=== PATIENT | male | born 2000 | race Hispanic/Latino ===

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

== ENCOUNTER 2024-07-26 23:01 | Emergency (ER) | payer SELFPAY ==
[~2024-07-26] VITALS: Ht 170.2 cm; Wt 78.5 kg
--- NOTE | 2024-07-26 23:03 | NUR ---
COVID, FLU AND STREP COLLECTED AND SENT FOR ANY FUTURE ORDERS
[2024-07-26 23:28] LABS: RAPID GROUP A STREP negative (NEGATIVE)
[2024-07-26 23:30] LABS: SARS-CoV-2, RNA, NAAT NEGATIVE SARS CoV-2 (NEGATIVE)
[2024-07-26 23:38] LABS: INFLUENZA TYPE A Negative For Type A (NEGATIVE); INFLUENZA TYPE B Negative For Type B (NEGATIVE)
[2024-07-26] MEDS ORDERED: AMOX1TAB16 PO (23:56)
--- NOTE | 2024-07-26 23:57 | ERN ---
ED Note History of Present Illness Stated Complaint: LEFT EAR PAIN Chief Complaint: Earache Time Seen by MD: 23:05 Time Seen by Midlevel: 23:05 Dictation: The patient is a 23-year-old male with no past medical history who presents to the emergency department with complaints of left ear pain onset yesterday. Patient denies any fevers, nasal congestion, sore throat or any other associated symptoms Allergies: Coded Allergies: No Known Allergies (Unverified Allergy, Unknown, 07/26/24) Home Meds Active Scripts Amoxicillin/Potassium Clav (Amox Tr-K Clv 875-125 mg Tab) 875 Mg-125 Mg Tablet, 1 TAB PO BID for 10 Days, #20 TAB 0 Refills Prov:SID MCKEON [employer] 07/26/24 Past Medical History Past Medical History: No Pertinent History Surgical History: None RN Note Reviewed/Agreed w/PFSH: Yes Review of System Dictation Constitutional: Negative for fever,chills, and weight loss Eyes: Negative for injury, pain,redness, and discharge ENT: Positive for left ear pain Cardiovascular: Negative for chest pain, palpitations, and edema Respiratory: Negative for shortness of breath, cough, and wheezing, Abdomen/GI: Negative for abdominal pain, nausea, vomiting, diarrhea, and constipation Back: Negative for injury and pain : Negative for injury, bleeding and discharge MS/Extremity: Negative for injury and deformity Skin: Negative for rash, and discoloration Neuro: Negative for headache, weakness, numbness, tingling, and seizure Psych: Negative for suicide ideation, homicidal ideation, and hallucinations Initial Vital Sign VS Vital Signs Date Time Temp Pulse Resp B/P (MAP) Pulse Ox O2 Delivery O2 Flow Rate FiO2 07/26/24 23:03 98.6 85 16 131/94 100 Room Air 07/27/24 00:10 0 21 Physical Exam Dictation Vital Signs reviewed General Appearance: Alert, oriented x 3, no acute distress, well developed, nourished. Head and Face: non-traumatic. Eyes: PERRL, pink conjunctivas, eyelid no trauma, anterior chamber with arcus se nilis. Ears: Pinnas intact and no signs of trauma or erythema ear canals clear and no discharge left tympanic membrane erythema Nose: No discharge, no bleeding. Oropharynx: Mouth normal, tongue pink. pharynx clear,no erythema, tonsils no exudates, no abscesses noted, mucous membrane moist Neck: Supple, non-tender, no thyromegaly, no masses, no JVD, no bruits Breast:Deferred Chest:No tenderness, no crepitus, no paradoxical movement, no retractions Lungs:Clear, well-ventilated, symmetric, no rales, no wheezing, no rhonchi, no stridor, good breath sounds bilaterally Heart: Regular rate, regular rhythm, no murmur, no gallops Vascular: no peripheral edema, Abdomen: Soft, positive bowel sounds, nondistended, no guarding, nontender, no rebound, no masses no hepatomegaly, no splenomegaly, no Espinoza's sign, no hernias. Rectal: Deferred Genital: Deferred Neurological: Normal speech, motor function intact, sensory function intact Musculoskeletal: Neck nontender, full range of motion, back nontender, full ra nge of motion, Extremities: nontender, full range of motion Skin: Color pink, dry, no turgor, no rash, no lacerations, no abrasions, no contusions. Lymphatic: Deferred Results (Laboratory/Radiology) Laboratory/Radiology Laboratory Tests Test 07/26/24 23:05 Influenza Type A Antigen Negative For Type A Influenza Type B Antigen Negative For Type B SARS-CoV-2, RNA, NAAT NEGATIVE SARS CoV-2 Group A Streptococcus Rapid negative (NEGATIVE) Labs Reviewed?: Yes ED Course ED Course Orders Procedure Category Date Status Time Influenza Type A & B, LAB 07/26/24 Complete Rapid 23:12 Rapid (Group A Strep) LAB 07/26/24 Complete 23:12 Covid Rna Naat LAB 07/26/24 Complete 23:12 Ketorolac 60mg/2ml PHA 07/27/24 Complete (Toradol 60mg/2ml) 00:00 Current Medications Medications (Trade) Dose Ordered Sig/Lynn Route PRN Reason Start Time Stop Time Status Last Admin Dose Admin Ketorolac Tromethamine (toRADol 60MG/ 2ML) 60 mg ONCE ONCE IM 07/27/24 00:00 07/27/24 00:01 DC 07/27/24 00:05 Vital Signs Date Time Temp Pulse Resp B/P (MAP) Pulse Ox O2 Delivery O2 Flow Rate FiO2 07/27/24 00:10 98.6 83 18 129/87 99 Room Air* 0 21 07/26/24 23:03 98.6 85 16 131/94 100 Room Air Medical Decision Making MDM The patient is a 23-year-old male with no past medical history who presents to the emergency department with complaints of left ear pain onset yesterday. P atient denies any fevers, nasal congestion, sore throat or any other associated symptoms Patient has symptoms consistent with a otitis media. Bulging tympanic membrane, erythema and patient will be discharged to follow up with PCP and started on antibiotics. Patient nontoxic appearing Differential diagnosis: Otitis media, otitis externa, cerumen impaction Need for hospitalization: Patient does not meet criteria for hospitalization. There are no social concerns with this patient. DX & DISP Disposition: Discharge Departure Impression: Primary Impression: Otitis media, left Condition: Stable Scripts Amoxicillin/Potassium Clav (Amox Tr-K Clv 875-125 mg Tab) 875 Mg-125 Mg Tablet 1 TAB PO BID for 10 Days, #20 TAB 0 Refills Prov: SID MCKEON 07/26/24 Additional Instructions: FOLLOW-UP WITH PRIMARY CARE PROVIDER IN 1 TO 2 DAYS. TAKE MEDICATIONS DIRECTED HERE IN THE EMERGENCY ROOM. OKAY TO CONTINUE HOME MEDICATIONS UNLESS OTHERWISE DISCUSSED DURING YOUR VISIT IN THE EMERGENCY ROOM TODAY. RETURN TO YOUR NEAREST EMERGENCY ROOM IF SYMPTOMS WORSEN OR IF THERE IS NO IMPROVEMENT. CALL 911 IF YOU NEED IMMEDIATE ASSISTANCE. TAKE TYLENOL OR MOTRIN [id number] NEEDED AND IF NO CONTRAINDICATIONS ARE PRESENT. INCREASE ORAL HYDRATION. A WOUND CULTURE OR URINE CULTURE WAS ORDERED HERE IN THE EMERGENCY ROOM DEPARTMENT PLEASE FOLLOW-UP WITH PRIMARY CARE PROVIDER AND ADVISE THEM TO GET REPEAT PORTS FROM OUR FACILITY. IF YOU HAD ANY ILDA WRAP/SPLINTS THAT WERE APPLIED HERE, PLEASE DO NOT REMOVE THEM UNTIL YOU SEE YOUR PRIMARY CARE OR SPECIALTY. Referrals: SELF,REFERRAL (PCP) Time of Disposition: 23:55 I have reviewed the case, and I agree with, Diagnosis and Plan SID MCKEON July 26, 2024 23:57
[2024-07-27] MEDS: ketOROlac 60 MG VIAL (30MG/ML) IM ONE (00:05)
[2024-07-27 00:10] VITALS: BP 129/87; PULSE 83; RESP 18; TEMP 98.6; O2SAT 99
== END 2024-07-27 00:11 | disposition home or self-care (01) ==
LOC: EDH 23:01
DX: H66.92 Otitis media, unspecified, left ear (principal); Z20.822 Contact with and (suspected) exposure to COVID-19; Z79.899 Other long term (current) drug therapy
CPT/HCPCS: 99283; 87635; 87880; 87804 ×2; 96372; J1885